=== PATIENT | female | born 2000 | race Caucasian/White ===

== ENCOUNTER 2024-06-08 12:18 | Emergency (ER) | payer SELFPAY ==
[2024-06-08 12:21] VITALS: BP 120/95
--- NOTE | 2024-06-08 13:58 | ED.GENMED ---
History of Present Illness
General
Chief Complaint: Cough
Time Seen by Provider: 06/08/24 13:58
History of Present Illness
History of Present Illness:
TIME OF INITIAL ENCOUNTER: 2 PM
HPI: The patient presents with hemoptysis. She describes it as a rather large amount of phlegm mixed with blood. She has had lesser episodes going on over the past year. She saw an ENT doctor 'who charge him a lot of money but did not do
anything'. He did recommend Flonase but Flonase has not helped. She used to vape but no longer smokes over the last couple of years. She has no bronchitis type of symptoms currently. She has no shortness of breath.
EXAM:
GENERAL: Well appearing in no distress
HEENT: Moist oral mucosa, unremarkable posterior oropharynx
CARDIOVASCULAR: No murmurs, normal heart rate, regular rhythm, No chest wall tenderness
PULMONARY: No respiratory distress, breath sounds are clear and equal, there is no wheeze
ABDOMEN: Soft with no peritoneal signs, no tenderness
NEUROLOGIC: Excellent strength all extremities, no coordination deficits
PSYCHIATRIC: Appropriate mental status, normal insight and judgement
EXTREMITIES: Nontender, no edema, moves all extremities equally
SKIN: No rash, no lesions
NUMBER AND COMPLEXITY OF PROBLEMS ADDRESSED AT THE ENCOUNTER
� Chronic conditions affecting care: Anxiety, ADHD
� Acute Exacerbation and/or Progression of Chronic Illness: This is an acute problem
� Differential Diagnosis includes: Bronchitis, pneumonia, underlying coagulopathy very unlikely given her age and no significant medical issues and lack of other bleeding sources
AMOUNT AND/OR COMPLEXITY OF DATA TO BE REVIEWED AND ANALYZED
� I performed an independent evaluation of and my interpretation is:
EKG:
CT:
X-rays: Chest x-ray normal
Laboratory Studies:
Other:
� Review of other/old records: I did review old records, the hemoglobin and platelet count were normal in August 2022
� Clinical information was obtained by an independent historian: I spoke to the mother at bedside
� Prescriptions/Medications Considered but not given:
� Further testing considered but not performed:
RISK OF COMPLICATIONS AND/OR MORBIDITY OR MORTALITY OF PATIENT MANAGEMENT
� Social determinants of health affecting care: Lives at home
� Discussion with other providers:
� Escalation of care including admission/observation vs risk of discharge considered: The patient is very well-appearing. There has been no episodes of hemoptysis here. Lab work was attempted at triage however they were
unsuccessful and patient is okay with holding off on any blood work. I have very low suspicion of any lab work abnormality. The patient is very well-appearing with normal oxygen levels I have very low suspicion for PE. She is PERC negative.
ANY OTHER UPDATES:
Past History
Past History
ED Past Medical History: Other (ADHD)
ED Past Surgical History: None
Social History
Tobacco: Non-smoker
Alcohol: Occasional
Personal: Single
Living: with family
Phy Exam
Physical Exam
Physical Exam:
See HPI
Course
Orders/Labs/Results
Orders:
Orders
06/08/24 12:24
CR Chest - 2 Views Urgent
Comment:
Reason For Exam: cough
06/08/24 12:24
06/08/24 12:24
Vital Signs
Initial and Last Documented VS:
Initial Vital Signs
Temp Pulse Resp BP Pulse Ox
37.2 C 72 18 120/95 100
06/08/24 12:21 06/08/24 12:21 06/08/24 12:21 06/08/24 12:21 06/08/24 12:21
Last Documented Vital Signs
Temp Pulse Resp BP Pulse Ox
37.2 C 72 16 120/95 100
06/08/24 12:21 06/08/24 12:21 06/08/24 14:29 06/08/24 12:21 06/08/24 14:29
*Critical Care Note
Total Time (30-74mins, 75-104mins- exclusive of procedures): Not Applicable
ED Attending Note
-
Portions of this chart may have been created with voice recognition software.� Occasional wrong word or��sound alike� substitutions may have occurred due to the inherent limitations of voice recognition software.
Discharge Plan
Departure
Patient Disposition: Home (Routine Discharge)
Date of Disposition: 06/08/24
Time of Disposition: 14:21
Patient with high blood pressure during this ER visit?: Yes
Discharge Problem:
Hemoptysis
Instructions: Acute Bronchitis, Adult (DC)
Prescriptions:
No Action
Synthroid
1 tab PO DAILY
pantoprazole [Protonix] 40 mg tablet,delayed release (DR/EC)
40 mg PO DAILY Qty: 10 0RF
Referrals:
Quang Mina MD [Active] - As needed
Activity Restrictions/Additional Instructions:
The cause of your symptoms is unclear. I have given the contact information for a local treatment specialist. Return here if worse or other concerns. Your oxygen levels are perfect about 100% and your x-ray was clear. Consider trying Mucinex again.
Interventions
Interventions:
*Risk Screen - Suicide Last Done: 06/08/24 12:21
*General Assessment Last Done: 06/08/24 12:21
*Neglect/Abuse Screening Last Done: 06/08/24 12:21
ED- Fall Risk Assessment Last Done: 06/08/24 14:29
*ED COVID-19 Vaccine History Last Done: 06/08/24 14:29
*Nursing Disposition Last Done: 06/08/24 14:29
ED- Pulmonary Assessment Last Done: 06/08/24 14:29
Discharge Date and Time
Discharge Date/Time: 06/08/24 14:29
Print Language: BRITISH
== END 2024-06-08 14:29 | disposition home or self-care (01) ==
LOC: EMR 12:18
PROVIDERS: EMERGENCY PHYSICIAN Emergency Medicine
DX: R04.2 Hemoptysis (principal); F90.9 Attention-deficit hyperactivity disorder, unspecified type
CPT/HCPCS: 99283; 71046